=== PATIENT | male | born 1995 ===

== ENCOUNTER 2018-07-22 16:21 | Emergency (ER) | payer SELFPAY ==
[~2018-07-22] VITALS: Ht 167.6 cm; Wt 70.3 kg
[2018-07-22] MEDS ORDERED: diphenhydrAMINE 25 MG TAB (BENADRYL) PO ONE (16:45)
[2018-07-22] MEDS ORDERED: predniSONE 20 MG TAB PO ONE (16:45)
[2018-07-22] MEDS ORDERED: PRD20T PO (16:49)
--- NOTE | 2018-07-22 16:50 | ED Integumentary General ---
General Chief Complaint: Allergic Reaction Stated Complaint: RASH Nursing Triage Note: RASH X1 WEEK. HAS NOT TAKEN ANY MEDICATION FOR IT. Source: patient Exam Limitations: no limitations History of Present Illness Date Seen by Provider: Jul 22, 2018 Time Seen by Provider: 16:45 Initial Comments To ER with an itchy rash to his abdomen and volar surfaces of arms and around his neck for about one week. No trouble breathing or cough. 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 He feels fine, no sore throat no fevers no cough and no other complaints of illness. Timing/Duration: week, getting worse Severity: moderate Location: torso, extremities Possible Cause: no cause identified Associated Symptoms: No fever; rash Allergies and Home Medications Allergies Coded Allergies: No Known Drug Allergies (Unverified , 07/22/18) Home Medications No Active Prescriptions or Reported Meds Patient Home Medication List Home Medication List Reviewed: Yes Review of Systems Review of Systems Constitutional: see HPI EENTM: see HPI Respiratory: no symptoms reported Cardiovascular: no symptoms reported Genitourinary: no symptoms reported Musculoskeletal: no symptoms reported Skin: see HPI Psychiatric/Neurological: No Symptoms Reported Endocrine: No Symptoms Reported Past [id number] Hx Patient Social History Alcohol Use: Occasionally Uses Recreational Drug Use: No Smoking Status: Current Everyday Smoker Recent Foreign Travel: No Contact w/Someone Who Travel: No Recent Infectious Disease Expo: No Recent Hopitalizations: No Seasonal Allergies Seasonal Allergies: No Past Medical History Surgeries: No Respiratory: No Cardiac: Yes (IS SUPPOSE TO BE ON BP MEDS BUT DOES NOT TAKE THEM) Hypertension Genitourinary: No Gastrointestinal: No Musculoskeletal: No Endocrine: No HEENT: No Cancer: No Psychosocial: No Integumentary: No Physical Exam Vital Signs Vital Signs - First Documented 07/22/18 16:31 Temp 97.6 Pulse 77 Resp 16 B/P (MAP) 151/96 (114) Pulse Ox 96 O2 Delivery Room Air Capillary Refill : Less Than 3 Seconds General Appearance: WD/WN, no apparent distress HEENT: PERRL/EOMI, normal ENT inspection Neck: non-tender, full range of motion Respiratory: no respiratory distress, no accessory muscle use Neurologic/Psychiatric: alert, normal mood/affect, oriented x 3 Skin: normal color, warm/dry Skin Problem Location: other (erythematous pruritic 1 cm flat patches to the back of his neck and anterior abdomen, erythematous papules to the volar surface of the forearms.) Progress/Results/Core Measures Results/Orders Vital Signs/I&O 07/22/18 16:31 Temp 97.6 Pulse 77 Resp 16 B/P (MAP) 151/96 (114) Pulse Ox 96 O2 Delivery Room Air Blood Pressure Mean: 114 Departure Impression Primary Impression: Rash and nonspecific skin eruption Disposition: HOME, SELF-CARE Condition: Stable Departure-Patient Inst. Decision time for Depature: 16:47 Referrals: NO,LOCAL PHYSICIAN (PCP/Family) Primary Care Physician Patient Instructions: Skin Rash (DC) Add. Discharge Instructions: 1. Take one Benadryl tablet every 4 hours as needed for itching. Take steroids as directed. All discharge instructions reviewed with patient and/or family. Voiced understanding. Scripts Prednisone (Prednisone) 20 Mg Tab 40 MG PO DAILY, #4 TAB Prov: APRIL GRACIA APRN 07/22/18 Work/School Note: Work Release Form Date Seen in the Emergency Department: Jul 22, 2018 Return to Work: Jul 23, 2018 APRIL GRACIA APRN Jul 22, 2018 16:50
[2018-07-22 16:57] VITALS: BP 151/96
== END 2018-07-22 16:57 | disposition home or self-care (01) ==
LOC: ER 16:23
DX: R21 Rash and other nonspecific skin eruption (principal); I10 Essential (primary) hypertension; F17.200 Nicotine dependence, unspecified, uncomplicated
CPT/HCPCS: 99283